=== PATIENT | female | born 1995 | race Caucasian/White ===

== ENCOUNTER 2022-01-03 12:29 | Observation (INO) | payer MEDICAID ==
[~2022-01-03] VITALS: Ht 152.4 cm; Wt 79.8 kg
[2022-01-03 14:33] LABS: CLARITY URINE CLEAR (CLEAR); COLOR URINE YELLOW (YELLOW); KETONES URINE NEGATIVE (NEGATIVE); LEUKOCYTE ESTERASE URINE NEGATIVE (NEGATIVE); NITRITE URINE NEGATIVE (NEGATIVE); OCCULT BLOOD URINE NEGATIVE (NEGATIVE); PH URINE 7.5 (4.5-8.0); PROTEIN URINE NEGATIVE (NEGATIVE); SPECIFIC GRAVITY URINE 1.016 (1.005-1.030)
[2022-01-03] MEDS ORDERED: PNV1TABL50 MT (16:19)
== END 2022-01-03 16:30 | disposition home or self-care (01) ==
LOC: 8 EST LDRP 12:29
PROVIDERS: ADMIT Obstetrics & Gynecology; ATTEND Obstetrics & Gynecology
DX: O26.853 Spotting complicating pregnancy, third trimester (principal); O26.893 Other specified pregnancy related conditions, third trimester; R35.0 Frequency of micturition; Z3A.38 38 weeks gestation of pregnancy
CPT/HCPCS: 76805; 76818; 81003; G0378; 99281

== ENCOUNTER 2022-01-05 02:05 | Inpatient (IN) | payer MEDICAID ==
[~2022-01-05] VITALS: Ht 152.4 cm; Wt 79.8 kg
[~2022-01-05 02:05] MED LIST: PNV1TABL50 MT
[2022-01-05] MEDS ORDERED: BUTORPHANOL TARTRATE 2 MG/ML VIAL IV PRN (07:30)
[2022-01-05] MEDS ORDERED: CARBOPROST TROMETHAMINE 250 MCG/ML AMPUL IM PRN (07:30)
[2022-01-05] MEDS ORDERED: LIDOCAINE HCL 1% 20ML VIAL (Pyxis) INJ INFIL SCH (07:30)
[2022-01-05] MEDS ORDERED: OXYTOCIN 30 UNITS/500ML NS PMX 500 ML IV SCH (07:30)
[2022-01-05] MEDS ORDERED: METHYLERGONOVINE MALEATE 0.2 MG/ML IM PRN (07:30)
[2022-01-05] MEDS ORDERED: LACTATED RINGERS 1,000 ML IV SCH (07:30)
[2022-01-05] MEDS ORDERED: NALOXONE HCL 0.4 MG/ML 1ML VIAL IM PRN (07:30)
[2022-01-05] MEDS: LACTATED RINGERS 1,000 ML IV SCH ×5 (08:02→20:52)
[2022-01-05] MEDS ORDERED: ROPIVACAINE HCL/PF EPIDURAL 200 ML EPI SCH (08:30)
[2022-01-05] MEDS ORDERED: LIDOCAINE HCL 2%/EPINEPHRINE 1:100,000 20 ML VIAL INFIL ONE (08:32)
[2022-01-05 08:46] LABS: BASOPHILS % 0.4 % (0.0-2.0); EOSINOPHILS % 0.4 % (0.0-5.0); HEMATOCRIT. 36.8 % (36.0-48.0); HEMOGLOBIN. 12.6 g/dL (12.0-16.0); LYMPHOCYTES % 15.3 % (20.0-50.0); MEAN CORPUSCULAR VOLUME 96.7 fL (81.0-99.0); MEAN PLATELET VOLUME 7.3 fl (7.4-10.4); NEUTROPHILS % 74.9 % (40.0-76.0); PLATELET 255 x1000/uL (130-400); RED CELL DISTRIBUTION WIDTH 13.6 % (11.6-14.6)
[2022-01-05 08:53] LABS: CLARITY URINE CLEAR (CLEAR); COLOR URINE YELLOW (YELLOW); KETONES URINE 1+ (NEGATIVE); LEUKOCYTE ESTERASE URINE 1+ (NEGATIVE); NITRITE URINE NEGATIVE (NEGATIVE); OCCULT BLOOD URINE 2+ (NEGATIVE); PROTEIN URINE NEGATIVE (NEGATIVE); SPECIFIC GRAVITY URINE 1.009 (1.005-1.030); UROBILINOGEN URINE 0.2 E.U./dL (0.2-1.0)
[2022-01-05 09:00] LABS: INR 0.9; PARTIAL THROMBOPLASTIN TIME 28.4 sec (23.4-31.0); PROTHROMBIN TIME 9.7 sec (9.6-11.0)
[2022-01-05 09:03] LABS: *AMPHETAMINES SCREEN URINE NEGATIVE (NEGATIVE); *BARBITURATES SCREEN URINE NEGATIVE (NEGATIVE); *BENZODIAZEPINES SCREEN URINE NEGATIVE (NEGATIVE); *COCAINE SCREEN URINE NEGATIVE (NEGATIVE); CANNABINOID URINE SCREEN NEGATIVE (NEGATIVE); METHADONE URINE SCREEN NEGATIVE (NEGATIVE); OPIATES URINE SCREEN NEGATIVE (NEGATIVE); PHENCYCLIDINE URINE SCREEN NEGATIVE (NEGATIVE)
[2022-01-05 11:37] LABS: HEPATITIS B SURFACE ANTIGEN NEGATIVE
[2022-01-05] MEDS ORDERED: ACETAMINOPHEN 500MG TABLET PO NR (17:26)
[2022-01-05] MEDS ORDERED: FENTANYL CITRATE/PF 50MCG/ML 2ML VIAL ONE (23:38)
[2022-01-05] MEDS ORDERED: ROPIVACAINE HCL/PF EPIDURAL 200 ML EPI ONE (23:38)
[2022-01-05] MEDS: ACETAMINOPHEN 325MG TABLET PO PRN (23:40)
[2022-01-05] MEDS: CEFAZOLIN 2,000 MG in DEXT 5% WATER 100 ML IV SCH (23:55)
[2022-01-06] MEDS ORDERED: CLINDAMYCIN 900 MG PREMIX 50 ML IV NR (03:00)
[2022-01-06] MEDS ORDERED: OXYTOCIN 30 UNITS/500ML NS PMX 500 ML IV SCH ×2 (04:15→08:30)
[2022-01-06] MEDS: ACETAMINOPHEN 325MG TABLET PO PRN (05:14)
[2022-01-06 05:44] VITALS: BP 105/64
[2022-01-06] MEDS: BENZOCAINE/LANOLIN/ALOE VERA SPRAY TOP PRN (05:58)
[2022-01-06] MEDS: CEFAZOLIN 2,000 MG in DEXT 5% WATER 100 ML IV SCH (06:05)
[2022-01-06 08:00] VITALS: BP 92/60
[2022-01-06] MEDS ORDERED: RHO(D) IMMUNE GLOBULIN 300 MCG/SYR IM PRN (08:30)
[2022-01-06] MEDS ORDERED: LANOLIN OINT 7GM TUBE TOP PRN (08:30)
[2022-01-06] MEDS ORDERED: HEMORRHOIDAL SUPP PR PRN (08:30)
[2022-01-06] MEDS ORDERED: ACETAMINOPHEN WITH CODEINE 300/30MG TABLET PO PRN (08:30)
[2022-01-06] MEDS ORDERED: DIPHENHYDRAMINE 25MG CAPSULE PO PRN (08:30)
[2022-01-06] MEDS ORDERED: GLYCERIN/WITCH HAZEL LEAF MEDICATED PAD TOP PRN (08:30)
[2022-01-06] MEDS ORDERED: IBUPROFEN 400MG TABLET PO PRN (08:30)
[2022-01-06] MEDS ORDERED: GENTAMICIN 80MG PREMIX 100 ML IV SCH (08:30)
[2022-01-06] MEDS ORDERED: BENZOCAINE/LANOLIN/ALOE VERA SPRAY TOP PRN (08:30)
[2022-01-06] MEDS ORDERED: BISACODYL 10MG SUPP PR PRN (08:30)
[2022-01-06] MEDS: PRENATAL VIT/FE FUMARATE/FA TABLET PO SCH (09:00)
[2022-01-06] MEDS: IBUPROFEN 800MG TABLET PO PRN ×2 (09:02→22:18)
[2022-01-06] MEDS ORDERED: GENTAMICIN 120MG PREMIX 100 ML IV NR (09:30)
[2022-01-06] MEDS: AMPICILLIN 2,000 MG in SODIUM CHLORIDE 0.9% 100 ML IV SCH ×3 (10:32→22:12)
[2022-01-06] MEDS: MAGNESIUM/ALUMINUM HYDROXIDE/SIMETHICONE 30ML UDC PO SCH ×2 (12:30→20:52)
[2022-01-06] MEDS: SIMETHICONE 80MG TABLET CHEW PO SCH ×2 (15:53→20:52)
[2022-01-06 16:00] VITALS: BP 98/62
[2022-01-06 19:48] VITALS: BP 105/59
[2022-01-06] MEDS: DOCUSATE SODIUM 100MG CAPSULE PO SCH (20:51)
[2022-01-06] MEDS: GENTAMICIN 100MG PREMIX 100 ML IV SCH (21:10)
[2022-01-07 00:25] VITALS: BP 98/49
[2022-01-07] MEDS: AMPICILLIN 2,000 MG in SODIUM CHLORIDE 0.9% 100 ML IV SCH ×4 (04:51→22:08)
[2022-01-07] MEDS: IBUPROFEN 800MG TABLET PO PRN ×2 (04:51→20:23)
[2022-01-07 04:59] VITALS: BP 95/54
[2022-01-07 06:51] LABS: BASOPHILS % 0.1 % (0.0-2.0); EOSINOPHILS % 0.8 % (0.0-5.0); HEMATOCRIT. 28.9 % (36.0-48.0); HEMOGLOBIN. 9.8 g/dL (12.0-16.0); LYMPHOCYTES % 11.3 % (20.0-50.0); MEAN CORPUSCULAR VOLUME 97.3 fL (81.0-99.0); MEAN PLATELET VOLUME 7.2 fl (7.4-10.4); MONOCYTES % 9.2 % (2.0-8.0); NEUTROPHILS % 78.6 % (40.0-76.0); PLATELET 185 x1000/uL (130-400); RED BLOOD CELL COUNT 2.97 mill/uL (4.2-5.4); RED CELL DISTRIBUTION WIDTH 13.7 % (11.6-14.6)
[2022-01-07 08:00] VITALS: BP 105/58
[2022-01-07] MEDS: MAGNESIUM/ALUMINUM HYDROXIDE/SIMETHICONE 30ML UDC PO SCH ×2 (09:00→20:22)
[2022-01-07] MEDS: PRENATAL VIT/FE FUMARATE/FA TABLET PO SCH (09:05)
[2022-01-07] MEDS: SIMETHICONE 80MG TABLET CHEW PO SCH ×2 (09:05→20:22)
[2022-01-07] MEDS: FERROUS SULFATE 325MG TABLET PO SCH (09:05)
[2022-01-07] MEDS: GENTAMICIN 100MG PREMIX 100 ML IV SCH (09:09)
[2022-01-07 16:00] VITALS: BP 106/60
[2022-01-07 20:00] VITALS: BP 98/51
[2022-01-07] MEDS: DOCUSATE SODIUM 100MG CAPSULE PO SCH (20:22)
[2022-01-07] MEDS ORDERED: GENTAMICIN 100MG PREMIX 50 ML IV SCH (21:00)
[2022-01-08 04:00] VITALS: BP 98/60
[2022-01-08] MEDS: AMPICILLIN 2,000 MG in SODIUM CHLORIDE 0.9% 100 ML IV SCH (04:31)
[2022-01-08] MEDS: IBUPROFEN 800MG TABLET PO PRN ×2 (04:34→10:54)
[2022-01-08 06:46] LABS: CHLORIDE 110 mEq/L (98-107)
[2022-01-08 06:55] LABS: HEMATOCRIT 31.2 % (36.0-48.0); HEMOGLOBIN 10.5 g/dL (12.0-16.0); MEAN CORPUSCULAR HEMOGLOBIN 32.9 pg (28.0-32.0); MEAN CORPUSCULAR VOLUME 97.5 fL (81.0-99.0); PLATELET 218 x1000/uL (130-400); RED CELL DISTRIBUTION WIDTH 14.1 % (11.6-14.6)
[2022-01-08 06:56] LABS: GENTAMICIN RANDOM 0.8 ug/mL
[2022-01-08] MEDS: MAGNESIUM/ALUMINUM HYDROXIDE/SIMETHICONE 30ML UDC PO SCH (07:30)
[2022-01-08 08:30] VITALS: BP 109/68
[2022-01-08] MEDS: FERROUS SULFATE 325MG TABLET PO SCH (10:53)
[2022-01-08] MEDS: PRENATAL VIT/FE FUMARATE/FA TABLET PO SCH (10:53)
[2022-01-08] MEDS: SIMETHICONE 80MG TABLET CHEW PO SCH (10:53)
[2022-01-08] MEDS: BENZOCAINE/LANOLIN/ALOE VERA SPRAY TOP PRN (12:13)
== END 2022-01-08 12:25 | disposition home or self-care (01) | DRG 560 ==
LOC: OBSVTOIN 02:05 → 8 EST LDRP 02:05 → 8EST 01-06 04:45
PROVIDERS: ADMIT Obstetrics & Gynecology; ATTEND Obstetrics & Gynecology
PROC: 10E0XZZ Delivery of Products of Conception, External Approach (ICD-10-PCS; principal; 2022-01-06)
PROC: 3E0R3BZ Introduction of Anesthetic Agent into Spinal Canal, Percutaneous Approach (ICD-10-PCS; 2022-01-06)
PROC: 00HU33Z Insertion of Infusion Device into Spinal Canal, Percutaneous Approach (ICD-10-PCS; 2022-01-06)
DX: O41.1230 Chorioamnionitis, third trimester, not applicable or unspecified (principal); Z37.0 Single live birth; O69.81X0 Labor and delivery complicated by cord around neck, without compression, not applicable or unspecified; O77.0 Labor and delivery complicated by meconium in amniotic fluid; Z20.822 Contact with and (suspected) exposure to COVID-19; Z3A.39 39 weeks gestation of pregnancy
CPT/HCPCS: 36415; 80048; 80170; 80305; 81003; 85025; 85027; 86592; 86703; 86762; 86850; 86900; 87340; 87426; 99281; C1893; J0290; J0690; J1580; J2795; J3010; J3490; J7050; J7060; J7120; A4315; J2590